=== PATIENT | male | born 1970 | race African-American/Black ===

== ENCOUNTER 2020-07-03 16:25 | Observation (INO) ==
[2020-07-03] MEDS ORDERED: SODIUM CHLORIDE 0.9% 1,000 ML IV STA ×2 (16:49→17:33)
[2020-07-03 17:28] LABS: Basophils # 0.1 10*3/uL (0.0-0.2); Basophils % 0.6 % (0.0-0.8); Eosinophils # 0.2 10*3/uL (0.0-0.87); Eosinophils % 1.8 % (0.00-10.9); Hematocrit 45.1 VOL% (42.0-52.0); Hemoglobin 13.9 GM/DL (14.0-18.0); Immature Granulocytes % 0.2 %; Immature Granulocytes Absolute 0.02 #; Lymphocytes # 1.7 10*3/uL (1.4-4.0); Lymphocytes % 19.9 % (21.2-54.2); Mean Corpuscular HGB Conc 30.8 GM/DL (32-36); Mean Corpuscular Volume 88.4 FL (87-102); Mean Platelet Volume 9.6 FL (9.6-12.0); Monocytes % 6.7 % (1.7-12.7); Neutrophils % 70.8 % (38.7-73.9); Platelet Count 313 T/CUMM (130-400); Red Cell Distribution Width 13.4 % (9.3-17.3); White Blood Count 8.8 T/CUMM (4-12)
[2020-07-03 17:39] LABS: PT Patient Result 10.9 SECS (9.8-11.9)
[2020-07-03 17:45] LABS: Albumin 3.4 G/DL (3.4-5.0); Bilirubin,Total 0.4 MG/DL (0.2-1.0); Calcium 8.9 MG/DL (8.5-10.1); Osmolality,Calculated 278.7 MOS/KG (273-304); Potassium 3.7 MMOL/L (3.5-5.1); Total Protein 6.6 G/DL (6.4-8.2)
[2020-07-03 19:22] LABS: Barbiturates Screen,Urine Negative (Negative); Benzodiazepines Screen,Urine Negative (Negative); Cannabinoid Screen,Urine Positive (Negative); Opiate Screen,Urine Negative (Negative); Phencyclidine Screen,Urine Negative (Negative)
[2020-07-03] MEDS ORDERED: DOCUSATE SODIUM 100 MG CAPSULE PO PRN (19:41)
[2020-07-03] MEDS ORDERED: ONDANSETRON 4 MG/2 ML VIAL IV PRN (19:41)
[2020-07-03] MEDS ORDERED: hydrALAZINE 20 MG/1 ML VIAL IV PRN (19:41)
[2020-07-03] MEDS ORDERED: GLUCAGON 1 MG VIAL IM PRN ×2 (19:41)
[2020-07-03] MEDS ORDERED: ACETAMINOPHEN 325 MG TABLET PO PRN (19:41)
[2020-07-03] MEDS ORDERED: DEXTROSE 50% 25 GM/50 ML VIAL IV PRN ×2 (19:41)
[2020-07-03] MEDS ORDERED: LORazepam 2 MG/1 ML VIAL IV PRN (19:50)
[2020-07-03] MEDS ORDERED: ENOXAPARIN 40 MG/0.4 ML SYRINGE SUBCUT SCH (20:00)
[2020-07-03] MEDS: LISINOPRIL/HCTZ 20-12.5 MG TABLET PO SCH (21:19)
[2020-07-03] MEDS: SODIUM CHLORIDE 0.9% 1,000 ML IV SCH (23:54)
[2020-07-04] MEDS: INSULIN LISPRO 100 UNIT/ML SUBCUT SCH ×3 (00:04→11:40)
[2020-07-04 02:13] LABS: Basophils % 0.5 % (0.0-0.8); Eosinophils # 0.2 10*3/uL (0.0-0.87); Eosinophils % 1.7 % (0.00-10.9); Hematocrit 42.7 VOL% (42.0-52.0); Hemoglobin 13.3 GM/DL (14.0-18.0); Immature Granulocytes % 0.3 %; Immature Granulocytes Absolute 0.03 #; Lymphocytes # 2.3 10*3/uL (1.4-4.0); Lymphocytes % 26.2 % (21.2-54.2); Mean Corpuscular HGB Conc 31.1 GM/DL (32-36); Mean Corpuscular Volume 87.7 FL (87-102); Mean Platelet Volume 9.3 FL (9.6-12.0); Monocytes % 8.1 % (1.7-12.7); Neutrophils % 63.2 % (38.7-73.9); Platelet Count 291 T/CUMM (130-400); Red Blood Count 4.87 MC/CUMM (3.8-5.5); Red Cell Distribution Width 13.6 % (9.3-17.3); White Blood Count 8.7 T/CUMM (4-12)
[2020-07-04 02:37] LABS: Calcium 8.7 MG/DL (8.5-10.1); Osmolality,Calculated 276.7 MOS/KG (273-304); Potassium 3.8 MMOL/L (3.5-5.1); Risk Ratio 3.96; Thyroid Stimulating Hormone 0.703 uIU/ml (0.358-3.74); VLDL CHOLESTEROL 43.2 MG/DL
[2020-07-04] MEDS ORDERED: amLODIPine 5 MG TABLET PO SCH (09:00)
[2020-07-04] MEDS: SODIUM CHLORIDE 0.9% 1,000 ML IV SCH ×2 (09:43→11:40)
[2020-07-04] MEDS: LISINOPRIL/HCTZ 20-12.5 MG TABLET PO SCH (09:43)
[2020-07-04 11:42] VITALS: BP 149/84
[2020-07-04] MEDS ORDERED: ATORVASTATIN 40 MG TABLET PO SCH (21:00)
== END 2020-07-04 15:26 | disposition home or self-care (01) ==
LOC: N.ED 16:25 → N.EDINP 16:25 → N.TELEN 20:35 → N.EDINP 21:21
PROVIDERS: ADMIT Internal Medicine; ATTEND Internal Medicine

== ENCOUNTER 2021-05-18 16:18 | Inpatient (IN) ==
[2021-05-18] MEDS ORDERED: HYDROmorphone 2 MG/1 ML VIAL IV STA ×2 (16:39→18:44)
[2021-05-18] MEDS ORDERED: ONDANSETRON 4 MG/2 ML VIAL IV STA (16:39)
[2021-05-18] MEDS ORDERED: SODIUM CHLORIDE 0.9% 500 ML IV STA (16:39)
[2021-05-18 17:58] LABS: Basophils # 0.1 10*3/uL (0.0-0.2); Basophils % 0.4 % (0.0-0.8); Eosinophils # 0.1 10*3/uL (0.0-0.87); Hematocrit 48.2 VOL% (42.0-52.0); Hemoglobin 15.2 GM/DL (14.0-18.0); Immature Granulocytes % 0.4 %; Immature Granulocytes Absolute 0.05 #; Lymphocytes # 1.3 10*3/uL (1.4-4.0); Lymphocytes % 11.7 % (21.2-54.2); Mean Corpuscular HGB Conc 31.5 GM/DL (32-36); Mean Corpuscular Volume 88.4 FL (87-102); Mean Platelet Volume 10.3 FL (9.6-12.0); Monocytes % 7.2 % (1.7-12.7); Neutrophils % 79.3 % (38.7-73.9); Platelet Count 277 T/CUMM (130-400); Red Blood Count 5.45 MC/CUMM (3.8-5.5); Red Cell Distribution Width 13.2 % (9.3-17.3); White Blood Count 11.4 T/CUMM (4-12)
[2021-05-18 18:08] LABS: Albumin 3.4 G/DL (3.4-5.0); Bilirubin,Total 0.8 MG/DL (0.20-1.00); Osmolality,Calculated 272.2 MOS/KG (273-304); Potassium 4.2 MMOL/L (3.5-5.1); Total Protein 7.9 G/DL (6.4-8.2)
[2021-05-18] MEDS ORDERED: hydrALAZINE 20 MG/1 ML VIAL IV STA (18:44)
[2021-05-18] MEDS ORDERED: PROMETHAZINE 25 MG/1 ML VIAL IM PRN (19:40)
[2021-05-18] MEDS ORDERED: GLUCAGON 1 MG VIAL IM PRN (19:40)
[2021-05-18] MEDS ORDERED: hydrALAZINE 20 MG/1 ML VIAL IV PRN (19:40)
[2021-05-18] MEDS ORDERED: LORazepam 2 MG/1 ML VIAL IV PRN (19:40)
[2021-05-18] MEDS ORDERED: ONDANSETRON 4 MG/2 ML VIAL IV PRN (19:40)
[2021-05-18] MEDS ORDERED: DEXTROSE 10% 250 ML BAG IV PRN (19:52)
[2021-05-18] MEDS ORDERED: HYDROmorphone 1 MG/1 ML SYRINGE IV PRN (19:52)
[2021-05-18] MEDS ORDERED: ENOXAPARIN 40 MG/0.4 ML SYRINGE SUBCUT SCH (21:00)
[2021-05-18] MEDS: LACTATED RINGERS 1,000 ML IV SCH (22:22)
[2021-05-18] MEDS ORDERED: INFLUENZA VIRUS VACCINE 0.5 ML SYRINGE IM ONE (23:26)
[2021-05-19] MEDS: LACTATED RINGERS 1,000 ML IV SCH ×5 (03:08→20:40)
[2021-05-19 07:08] LABS: Basophils % 0.4 % (0.0-0.8); Eosinophils # 0.1 10*3/uL (0.0-0.87); Eosinophils % 1.3 % (0.00-10.9); Hematocrit 46.8 VOL% (42.0-52.0); Hemoglobin 15.2 GM/DL (14.0-18.0); Immature Granulocytes % 0.5 %; Immature Granulocytes Absolute 0.04 #; Lymphocytes # 1.4 10*3/uL (1.4-4.0); Lymphocytes % 17.3 % (21.2-54.2); Mean Corpuscular HGB Conc 32.5 GM/DL (32-36); Mean Corpuscular Volume 87.5 FL (87-102); Mean Platelet Volume 9.9 FL (9.6-12.0); Monocytes % 7.2 % (1.7-12.7); Neutrophils % 73.3 % (38.7-73.9); Platelet Count 274 T/CUMM (130-400); Red Blood Count 5.35 MC/CUMM (3.8-5.5); Red Cell Distribution Width 13.2 % (9.3-17.3); White Blood Count 8.3 T/CUMM (4-12)
[2021-05-19 07:28] LABS: Calcium 8.6 MG/DL (8.5-10.1); Osmolality,Calculated 275.8 MOS/KG (273-304); Potassium 3.8 MMOL/L (3.5-5.1); Risk Ratio 3.78
[2021-05-19 07:32] LABS: Folate 14.25 NG/ML (5.38-24.0)
[2021-05-19] MEDS ORDERED: THIAMINE 200 MG/2 ML VIAL IV SCH (09:00)
[2021-05-19] MEDS: MULTIVITAMIN (CENTRUM) TABLET PO SCH (09:49)
[2021-05-19] MEDS: FOLIC ACID 1 MG TABLET PO SCH (09:49)
[2021-05-19] MEDS: PANTOPRAZOLE 40 MG VIAL IV SCH (09:50)
[2021-05-19] MEDS: lisinopriL 10 MG TABLET PO SCH (09:50)
[2021-05-19] MEDS: THIAMINE 100 MG TABLET PO SCH (09:50)
[2021-05-19] MEDS: ENOXAPARIN 40 MG/0.4 ML SYRINGE SUBCUT SCH (10:09)
[2021-05-19] MEDS ORDERED: cloNIDine 0.1 MG TABLET PO ONE (16:50)
[2021-05-19] MEDS: cloNIDine 0.1 MG TABLET PO SCH (20:42)
[2021-05-19] MEDS ORDERED: NORTRIPTYLINE 25 MG CAPSULE PO SCH (21:00)
[2021-05-20] MEDS: LACTATED RINGERS 1,000 ML IV SCH (01:53)
[2021-05-20 05:55] LABS: Basophils % 0.5 % (0.0-0.8); Eosinophils # 0.1 10*3/uL (0.0-0.87); Eosinophils % 1.9 % (0.00-10.9); Hematocrit 48.5 VOL% (42.0-52.0); Hemoglobin 15.3 GM/DL (14.0-18.0); Immature Granulocytes % 0.3 %; Immature Granulocytes Absolute 0.02 #; Lymphocytes % 26.3 % (21.2-54.2); Mean Corpuscular HGB Conc 31.5 GM/DL (32-36); Monocytes % 9.9 % (1.7-12.7); Neutrophils % 61.1 % (38.7-73.9); Platelet Count 253 T/CUMM (130-400); Red Blood Count 5.51 MC/CUMM (3.8-5.5); White Blood Count 7.5 T/CUMM (4-12)
[2021-05-20 06:07] LABS: Calcium 9.2 MG/DL (8.5-10.1); Osmolality,Calculated 267.4 MOS/KG (273-304); Potassium 3.6 MMOL/L (3.5-5.1)
[2021-05-20 07:51] VITALS: BP 157/86
[2021-05-20] MEDS: FOLIC ACID 1 MG TABLET PO SCH (09:21)
[2021-05-20] MEDS: MULTIVITAMIN (CENTRUM) TABLET PO SCH (09:21)
[2021-05-20] MEDS: lisinopriL 10 MG TABLET PO SCH (09:22)
[2021-05-20] MEDS: cloNIDine 0.1 MG TABLET PO SCH (09:22)
[2021-05-20] MEDS: PANTOPRAZOLE 40 MG VIAL IV SCH (09:26)
[2021-05-20] MEDS: ENOXAPARIN 40 MG/0.4 ML SYRINGE SUBCUT SCH (09:27)
[2021-05-20] MEDS: THIAMINE 100 MG TABLET PO SCH (09:29)
== END 2021-05-20 11:25 | disposition home or self-care (01) | DRG 440 ==
LOC: N.ED 16:18 → N.3E 16:18 → SUATTDRO 19:40 → N.3E 22:15 → SUATTDRO 05-19 08:54
PROVIDERS: ADMIT Internal Medicine; ATTEND Internal Medicine